=== PATIENT | male | born 1995 | race Caucasian/White ===

== ENCOUNTER 2019-09-01 17:55 | Emergency (ER) | payer MEDICAID, OTHER ==
[~2019-09-01] VITALS: Ht 177.8 cm; Wt 77.6 kg
[2019-09-01 18:31] VITALS: BP 143/85
[2019-09-01] MEDS ORDERED: ACETAMINOPHEN EXTRA STRENGTH 500 MG TAB PO ONE (18:35)
[2019-09-01] MEDS ORDERED: ACETAMINOPHEN EXTRA STRENGTH 500 MG TAB ONE (18:41)
--- NOTE | 2019-09-01 18:42 | NUR ---
PT TO SHAHEED MORGAN
--- NOTE | 2019-09-01 18:42 | NUR ---
TYLENOL PO ADMINISTERED, FLU SWAB COLLECTED
--- NOTE | 2019-09-01 18:55 | NUR ---
PT AMBULATED TO BED 03
--- NOTE | 2019-09-01 19:25 | NUR ---
DR. WILLIS MIKE AT BEDSIDE.
[2019-09-01] MEDS ORDERED: AMOXIL/CLAVULANATE 875/125 MG 1 TAB PO ONE (19:30)
[2019-09-01] MEDS ORDERED: IBUPROFEN 600 MG TAB PO ONE (19:30)
--- NOTE | 2019-09-01 19:30 | NUR ---
NEW ORAL TEMP 100.8
--- NOTE | 2019-09-01 19:35 | NUR ---
24 YO M BIB MOM PRESENTS TO ED C/O FEVER SINCE YESTERDAY ACCOMPANIED BY DRY, NON PRODUCTIVE COUGH X 3 DAYS. ALSO C/O 9/10 SHARP LEFT EARACHE OFF AND ON X 1 MONTH. MEDICATED AT HOME WITH OTC COUGH SYRUP WITH NO RELIEF. DENIES ABD PAIN, NVD. PT AWAKE, A/O X 4. APPEARS LETHARGIC. BREATHING EVEN, UNLABORED. SKIN NORMAL FOR ETHNICITY, WARM, DRY. BREATHING EVEN, UNLABORED. PMH-- HYPOTHYROID (NON COMPLIANT)
--- NOTE | 2019-09-01 19:50 | NUR ---
XRAY AT BEDSIDE.
[2019-09-01 21:12] VITALS: BP 136/75
--- NOTE | 2019-09-01 21:12 | NUR ---
Patient discharged with v/s stable. Written and verbal after care instructions given and explained. Patient alert, oriented and verbalized understanding of instructions. Ambulatory with steady gait. All questions addressed prior to discharge. ID band removed. Patient advised to follow up with PMD. Rx of Tamiflu, Zofran and Augmentin given. Patient educated on indication of medication including possible reaction and side effects. Opportunity to ask questions provided and answered.
== END 2019-09-01 21:12 | disposition home or self-care (01) ==
LOC: MED 17:55
DX: H66.92 Otitis media, unspecified, left ear (principal); J10.1 Influenza due to other identified influenza virus with other respiratory manifestations; E03.9 Hypothyroidism, unspecified; K08.89 Other specified disorders of teeth and supporting structures
CPT/HCPCS: 71045; 87804; 99284; Q0092